=== PATIENT | male | born 1980 | race Caucasian/White ===

== ENCOUNTER 2023-12-10 08:56 | Emergency (ER) | payer BC, SELFPAY ==
--- NOTE | ~2023-12-10 | CT_ITS ---
Non-contrast Head CT History: Vertigo Technique: Axial non-contrast imaging of the brain was performed. Dose reduction technique was used on this scan by utilizing automated exposure control and iterative reconstruction technique. The dose -length product (DLP) was 605.33 mGy-cm. Findings: There is no evidence of intracranial hemorrhage, mass lesion, or acute infarct. Brain par enchyma appears normal. The ventricles and subarachnoid spaces are normal in size. The calvarium ap pears normal. The visualized paranasal sinuses and mastoid air cells are clear. Impression: No significant abnormality seen. Reviewed, dictated and finalized at location . Impression: No significant abnormality seen.
[2023-12-10 09:02] VITALS: BP 149/92; PULSE 73; RESP 19; TEMP 36.4; O2SAT 100
--- NOTE | 2023-12-10 09:02 | ECG_ITS ---
SEE SCANNED COPY FOR CONFIRMED REPORT MTDD
--- NOTE | 2023-12-10 09:12 | ED.DIZZY ---
HPI - Dizziness General Chief Complaint: Dizziness Stated Complaint: dizzy sice 0730 Time Seen by Provider: 12/10/23 09:00 History of Present Illness HPI Narrative: 43-year-old male presenting to the emergency department for acute onset of dizziness. Patient was at work when he had onset of dizziness with associated nausea. Patient states his symptoms are improved with closing his eyes and resting. Will patient is resting in bed he states he has no dizziness. Dizziness is worsened with ambulation. Patient denies any associated numbness or weakness. Patient denies any falls or injuries. Patient denies any coughs colds fevers or sinus pressure. Related Data Allergies Allergy/AdvReac Type Severity Reaction Status Date / Time FIG Allergy Unknown HIVES Uncoded 12/10/23 09:15 Review of Systems Review of Systems: All systems reviewed & are unremarkable except as noted in HPI and below PMFSH Family History Family History (Updated 09/20/20 @ 16:18 by Vidal Bentley MD Lon) Mother , CHF Congestive heart failure (CHF) Father Family history of lung cancer Other Asthma Family history of cardiovascular disease Family history of chronic obstructive pulmonary disease Family history of seizure disorder Social History Social History Second hand tobacco smoke exposure: No Alcohol intake: current Gender identity (if verbalized by the patient): Male Exam Narrative: APPEARANCE: Well appearing, no pain, no distress, well-nourished. HEAD: normocephalic, atraumatic. EYES: PERRLA/EOMI, conjunctivae clear. NOSE: Normal no drainage EARS:TMS clear with good light reflex. RESPIRATORY: Airway patent, respirations nonlabored. Clear to auscultation bilaterally, no rales, rhonchi, wheezing. CARDIOVASCULAR: Regular rate and rhythm without murmurs rubs or gallops. ABDOMINAL: Soft, nontender, nondistended, normal bowel sounds MUSCULOSKELETAL: Moves all extremities. Strength/ROM intact, No edema, No calf tenderness. NEURO: Alert. Cranial nerves II through XII intact. No ataxia, normal strength reflexes SKIN: Warm, dry. Normal Color Course Course Emergency Course: Patient felt improved with treatment and was discharged home with meclizine Vital Signs Vital signs: Vital Signs Temperature 97.5 F L 12/10/23 09:02 Pulse Rate 73 12/10/23 09:02 Respiratory Rate 19 12/10/23 09:02 Blood Pressure 149/92 H 12/10/23 09:02 Pulse Oximetry 100 12/10/23 09:02 Oxygen Delivery Room Air 12/10/23 09:02 Temperature 97.5 F L 12/10/23 09:02 Pulse Rate 56 L 12/10/23 10:53 Respiratory Rate 18 12/10/23 10:53 Blood Pressure 138/80 12/10/23 10:53 Pulse Oximetry 99 12/10/23 10:53 Oxygen Delivery Room Air 12/10/23 09:02 MDM - Dizziness MDM Narrative Medical decision making narrative: [age] year old male presenting to ED for evaluation dizziness. Patient was treated with meclizine and had a CT scan. On re-evaluation patient states he does feel significantly improved. Patient was able to ambulate in the emergency department without issues. Low concern for central vertigo. Suspect benign positional vertigo. Differential Diagnosis Differential diagnosis: Likely benign paroxysmal positional vertigo, orthostatic hypotension, vertebral basilar insufficiency and cerebrovascular accident Lab Data Attestation: I reviewed the patient's lab results. 12/10/23 09:13 12/10/23 09:13 Labs: Lab Results 12/10/23 Range/Units 09:13 WBC 7.6 (4.5-10.0) K/mm3 RBC 4.66 (4.6-6.20) M/mm3 Hgb 14.9 (14.0-18.0) g/dL Hct 44.5 (42.0-52.0) % MCV 95.5 (80-100) fl MCH 32.0 (26-34) pg MCHC 33.5 (32-36) g/dl RDW 12.5 (11.5-14.5) % Plt Count 202 (150-375) k/mm3 MPV 8.7 (7.4-10.4) fl Immature Gran % (Auto) 0.7 H (0-0.5) % Neut % (Auto) 78.5 H (45.5-73.1) % Lymph % (Auto) 13.4 L (18.3-44.2) % [place] % (Auto) 6.6 (2.6-8.5
[2023-12-10 09:19] LABS: Basophils Percent Auto 0.4 % (0.2-1.2); Eosinophils Percent Auto 0.4 % (0-4.4); Hematocrit 44.5 % (42.0-52.0); Hemoglobin 14.9 g/dL (14.0-18.0); Immature Granulocyte Absolute 0.05 K/mm3 (0.00-0.031); Immature Granulocyte Percent A 0.7 % (0-0.5); Lymphocytes Absolute Auto 1.02 K/mm3 (0.9-3.2); Lymphocytes Percent Auto 13.4 % (18.3-44.2); Mean Corpuscular HGB Conc 33.5 g/dl (32-36); Mean Corpuscular Volume 95.5 fl (80-100); Mean Platelet Volume 8.7 fl (7.4-10.4); Monocytes Absolute Auto 0.5 K/mm3 (0.1-0.6); Monocytes Percent Auto 6.6 % (2.6-8.5); Neutrophils Percent Auto 78.5 % (45.5-73.1); Platelet Count Result 202 k/mm3 (150-375); Red Blood Count 4.66 M/mm3 (4.6-6.20); Red Cell Distribution Width 12.5 % (11.5-14.5); White Blood Count 7.6 K/mm3 (4.5-10.0)
--- NOTE | 2023-12-10 09:20 | PC.NURSE ---
Pt to CT scan via stretcher at this time.
[2023-12-10 09:22] VITALS: PULSE 75
[2023-12-10] MEDS: MECLIZINE HCL 25 MG TABLET PO (09:22)
[2023-12-10 09:28] LABS: Alanine Aminotransferase 34 U/L (6-50); Albumin Level 4.4 g/dL (3.5-5.1); Alkaline Phosphatase 77 U/L (38-126); Anion Gap 4 mmol/L (4-12); Aspartate Amino Transferase 24 U/L (17-59); Bilirubin,Total 0.6 mg/dL (0.2-1.3); Blood Urea Nitrogen 16 mg/dL (9-20); Carbon Dioxide 29 mmol/L (22-30); Chloride 104 mmol/L (98-107); Estimated CRCL calculation 108 ml/min; Estimated Glomerular Filt Rate > 60; Glucose 97 mg/dL (65-110); Potassium 4.5 mmol/L (3.4-5.0); Sodium 137 mmol/L (137-145)
[2023-12-10 10:01] VITALS: BP 150/93; PULSE 65; RESP 15; O2SAT 98
[2023-12-10 10:53] VITALS: BP 138/80; PULSE 56; RESP 18; O2SAT 99
== END 2023-12-10 10:54 | disposition home or self-care (01) ==
PROVIDERS: Emergency Provider Emergency Medicine; Referring Provider Emergency Medicine
DX: H81.10 Benign paroxysmal vertigo, unspecified ear (principal)
CPT/HCPCS: 36415; 70450; 80053; 85025; 93005; 99284; A9270

== ENCOUNTER 2023-12-25 18:02 | Observation (INO) | payer BC, SELFPAY ==
[2023-12-25] VITALS (10 sets, daily range): BP systolic 138–189; BP diastolic 90–112; PULSE 62–81; RESP 12–24; TEMP 36.7–37.2; O2SAT 95–100; BMI 36.5
--- NOTE | ~2023-12-25 | CT_ITS ---
EXAMINATION: CT abdomen pelvis w con DATE: 12/25/2023 18:42 INDICATION: Gastrointestinal hemorrhage. TECHNIQUE: Computed tomography (CT) of the abdomen and pelvis was performed with 100 mL Omnipaque 350 intravenous contrast. Automated exposure control and iterative reconstruction technique were employe d. The dose-length product was 1091.49 mGy-cm. COMPARISON: None. FINDINGS: The visualized portions of the lung bases demonstrate calcified pulmonary nodules and calci fied right hilar and mediastinal lymph nodes, consistent with old granulomatous disease. No pleural e ffusion. The heart size is normal. No pericardial effusion. There is a small sliding hiatal hernia. T he liver, gallbladder, spleen, pancreas, adrenal glands, and kidneys are normal. There is a left ingu inal hernia containing fat. There are no dilated loops of bowel. The appendix is normal. There are no pathologically enlarged lymph nodes. There is no free intraperitoneal fluid. There is severe lumbar spondylosis and mild thoracic spondylosis. There is mild chronic anterior wedging of multiple vertebr al bodies. IMPRESSION: 1. No etiology for gastrointestinal hemorrhage. Reviewed, dictated and finalized at location E.
[2023-12-25 18:23] LABS: Basophils Percent Auto 0.4 % (0.2-1.2); Eosinophils Absolute Auto 0.1 K/mm3 (0-0.3); Eosinophils Percent Auto 0.7 % (0-4.4); Hematocrit 44.6 % (42.0-52.0); Hemoglobin 15.3 g/dL (14.0-18.0); Immature Granulocyte Absolute 0.04 K/mm3 (0.00-0.031); Immature Granulocyte Percent A 0.5 % (0-0.5); Lymphocytes Absolute Auto 1.75 K/mm3 (0.9-3.2); Mean Corpuscular HGB Conc 34.3 g/dl (32-36); Mean Corpuscular Volume 93.3 fl (80-100); Mean Platelet Volume 8.7 fl (7.4-10.4); Monocytes Absolute Auto 0.7 K/mm3 (0.1-0.6); Monocytes Percent Auto 9.2 % (2.6-8.5); Neutrophils Absolute Auto 4.8 K/mm3 (1.3-6.7); Neutrophils Percent Auto 65.2 % (45.5-73.1); Platelet Count Result 246 k/mm3 (150-375); Red Blood Count 4.78 M/mm3 (4.6-6.20); Red Cell Distribution Width 12.3 % (11.5-14.5); White Blood Count 7.3 K/mm3 (4.5-10.0)
[2023-12-25] MEDS: TRANEXAMIC ACID 1,000 MG/10 ML AMPUL 1000 MG IV PUSH (18:26)
[2023-12-25 18:34] LABS: Estimated CRCL calculation 108 ml/min; Estimated Glomerular Filt Rate > 60
[2023-12-25 18:34] LABS: Alanine Aminotransferase 37 U/L (6-50); Albumin Level 4.9 g/dL (3.5-5.1); Alkaline Phosphatase 68 U/L (38-126); Anion Gap 9 mmol/L (4-12); Aspartate Amino Transferase 32 U/L (17-59); Bilirubin,Total 0.6 mg/dL (0.2-1.3); Blood Urea Nitrogen 15 mg/dL (9-20); Calcium 9.6 mg/dL (8.4-10.2); Carbon Dioxide 23 mmol/L (22-30); Chloride 108 mmol/L (98-107); Estimated CRCL calculation 108 ml/min; Estimated Glomerular Filt Rate > 60; Glucose 94 mg/dL (65-110); Sodium 140 mmol/L (137-145)
[2023-12-25 18:37] LABS: INR 0.9; Prothrombin Time 12.4 Seconds (11.1-14.7)
[2023-12-25] MEDS: SODIUM CHLORIDE 0.9% IV 1,000 ML 999 ML IV CONT (18:42)
--- NOTE | 2023-12-25 19:18 | ED.GIBLEED ---
HPI - GI Bleed General Chief complaint: GI Bleed Stated complaint: Rectal bleeding Time Seen by Provider: 12/25/23 18:06 Source: patient and family Mode of arrival: wheelchair Limitations: no limitations History of Present Illness HPI Narrative: 43-year-old otherwise healthy here with a complaint of sudden onset of bright red blood per rectum which started about 1 hour patient denies any trauma. He denies being lightheaded or dizzy. No previous episodes of GI bleed. He is not on any anticoagulant MD complaint: gross hematochezia Onset (ago): hour(s) (1) Pain Consistency: constant Severity: severe Relieving factors: none Exacerbating factors: none Associated symptoms: denies other symptoms Related Data Allergies Allergy/AdvReac Type Severity Reaction Status Date / Time FIG Allergy Unknown HIVES Uncoded 12/10/23 09:15 Review of Systems Review of Systems: All systems reviewed & are unremarkable except as noted in HPI and below Constitutional: Constitutional: Reports no additional constitutional complaints Eyes: Eyes: Reports no additional eye complaints ENT: Reports system reviewed and no additional complaints, except as documented Cardiovascular: Cardiovascular: Reports no additional cardiovascular complaints Respiratory: Respiratory: Reports no additional respiratory complaints Gastrointestinal: Gastrointestinal: Reports as per HPI Musculoskeletal: Musculoskeletal: Reports no additional musculoskeletal complaints Integumentary/Breasts: Skin/Breast: Reports system reviewed and no additional complaints, except as docu Neurologic: Reports system reviewed and no additional complaints, except as documented PMFSH Family History Family History Mother , CHF Congestive heart failure (CHF) Father Family history of lung cancer Other Asthma Family history of cardiovascular disease Family history of chronic obstructive pulmonary disease Family history of seizure disorder Social History Social History Second hand tobacco smoke exposure: No Alcohol intake: current Gender identity (if verbalized by the patient): Male Exam Narrative: GENERAL: Well-appearing, well-nourished, and in no acute distress. HEAD: Normocephalic, atraumatic. EYES: PERRLA and EOMI. ENT: Nares clear, no rhinorrhea or epistaxis. Mucous membranes moist. NECK: Supple. CHEST: Clear to auscultation. No respiratory distress. HEART: Regular rate and rhythm. No murmur heard. Normal peripheral pulses. ABDOMEN: Soft, nontender, nondistended, normal active bowel sounds. Active bleeding , bright red in color EXTREMITIES: Normal range of motion. No edema. SKIN: Warm, dry, no rash. NEURO: No focal deficits. Alert and oriented x3. PSYCH: Normal mood and affect. Course Course Emergency Course: Patient comfortably resting now, mild bleeding present at this time. Informed him and his about the lab work, CT findings. I discussed with Dr. Gorman and Dr. Reddy will consult , Dr. Veras was notified will accept the pt. Vital Signs Vital signs: Vital Signs Pulse Rate 81 12/25/23 18:11 Respiratory Rate 24 H 12/25/23 18:11 Blood Pressure 189/112 H 12/25/23 18:11 Pulse Oximetry 98 12/25/23 18:11 Temperature 36.9 C 12/25/23 19:38 Pulse Rate 72 12/25/23 19:35 Respiratory Rate 18 12/25/23 19:35 Blood Pressure 140/92 H 12/25/23 19:35 Pulse Oximetry 100 12/25/23 19:35 MDM - GI Bleed Differential Diagnosis Differential diagnosis: Likely hemorrhoids, Lower gastrointestinal hemorrhage and hematochezia Medical Records Attestation: I reviewed the patient's medical records. Lab Data Attestation: I reviewed the patient's lab results. 12/25/23 18:17 12/25/23 18:32 Labs: Lab Results 12/25/23 12/25/23 Range/Units 18:17 18:32 WBC 7.3
--- NOTE | 2023-12-25 20:00 | ADMGEN ---
This patient, Morris Lizarraga, was admitted to Intensive Care Unit-2. Patient/family oriented to hospital policies and general routines including ID bracelet, bed and alarms, visiting hours, pain management, procedures, bathroom and other care routines, personal items, smoking policy, room service/diet, and visiting hours. Information on how to activate the Rapid Response Team has been discussed. Patient/Family are encouraged to report perceived risks to care and to ask questions if they do not understand what they are told or what they should do.
--- NOTE | 2023-12-25 20:21 | PM.IMHP ---
H&P: HPI History of Present Illness Date/Time: 12/25/23 20:21 Chief Complaint: rectal bleed Narrative: This is a 43-year-old male with past medical history significant for hypertension, patient presents to the emergency room with bright red blood per rectum on several episodes through the day denies any changes in stool character, melena, hematemesis, coffee-ground emesis, abdominal pain, no weight loss. patient has been in his usual state of health up until this moment. Preliminary workup was nonrevealing. EXAMINATION: CT abdomen pelvis w con DATE: 12/25/2023 18:42 INDICATION: Gastrointestinal hemorrhage. TECHNIQUE: Computed tomography (CT) of the abdomen and pelvis was performed with 100 mL Omnipaque 350 intravenous contrast. Automated exposure control and iterative reconstruction technique were employed. The dose-length product was 1091.49 mGy-cm. COMPARISON: None. FINDINGS: The visualized portions of the lung bases demonstrate calcified pulmonary nodules and calcified right hilar and mediastinal lymph nodes, consistent with old granulomatous disease. No pleural effusion. The heart size is normal. No pericardial effusion. There is a small sliding hiatal hernia. The liver, gallbladder, spleen, pancreas, adrenal glands, and kidneys are normal. There is a left inguinal hernia containing fat. There are no dilated loops of bowel. The appendix is normal. There are no pathologically enlarged lymph nodes. There is no free intraperitoneal fluid. There is severe lumbar spondylosis and mild thoracic spondylosis. There is mild chronic anterior wedging of multiple vertebral bodies. IMPRESSION: 1. No etiology for gastrointestinal hemorrhage. Review of Systems Review of Systems: rectal bleed Constitutional: Constitutional: Denies chills, Denies fever(s), Denies malaise and Denies poor appetite Eyes: Eyes: Denies change in vision ENT: Denies dysphagia and Denies odynophagia Cardiovascular: Cardiovascular: Denies chest pain, Denies radiating jaw, neck or arm pain and Denies palpitations Respiratory: Respiratory: Denies cough, Denies excessive phlegm production and Denies dyspnea Gastrointestinal: Gastrointestinal: Denies abdominal pain, Denies melena, Reports hematochezia, Denies coffee ground emesis, Denies dyspepsia, Denies heartburn, Denies diarrhea, Denies nausea and Denies vomiting Genitourinary: Genitourinary: Denies dysuria Musculoskeletal: Musculoskeletal: Denies arthralgias Integumentary/Breasts: Skin/Breast: Denies rash Neurologic: Denies focal weakness and Denies Sensory deficit (Neuro) Psychiatric: Psychiatric: Reports no additional psychiatric complaints and Reports as per HPI Endocrine: Endocrine: Denies cold intolerance, Denies fatigue, Denies flushing, Denies heat intolerance, Denies polyphagia, Denies polydipsia, Denies polyuria and Denies palpitations Hematologic/Lymphatic: Hematologic/Lymphatic: Reports no additional hematologic/lymphatic complaints and Reports as per HPI Allergic/Immunologic: Allergic/Immunologic: Reports no additional allergic/immunologic complaints and Reports as per HPI PMFSH Family History Family History Mother , CHF Congestive heart failure (CHF) Father Family history of lung cancer Other Asthma Family history of cardiovascular disease Family history of chronic obstructive pulmonary disease Family history of seizure disorder Social History Social History Smoking status: Former smoker Second hand tobacco smoke exposure: No Alcohol intake: never Substance use: never Do You Feel Safe in your Home?: Yes Lack of Transportation: No Lack of Food: Never True Current Housing: I Do Not Have Housing Concerned About Future Housing: No Difficulty Paying Gas/Electric Bills: No Difficulty Paying for Meds: No Currently Unemployed: N
[2023-12-25] MEDS: SODIUM CHLORIDE 0.9% IV 1,000 ML 125 ML IV CONT (20:44)
[2023-12-25 20:56] LABS: Hematocrit 38.9 % (42.0-52.0); Hemoglobin 13.4 g/dL (14.0-18.0)
[2023-12-25] MEDS: PEG (High)/E-LYTE SOLN 4,000 ML BTL 4000 ML PO (21:00)
[2023-12-25 21:41] LABS: MRSA (PCR) NOT DETECTED (NOT DETECTE)
--- NOTE | 2023-12-25 21:45 | PC.NURSE ---
Pt arrived to ICU via stretcher. Pt walked into bathroom. When pt walked back into room, blood was dripping on the floor. Blood was on the toilet seat and floor of the bathroom. H&H drawn shortly after. Pt started on bowel prep. BSC at bedside. Pt has used the BSC once, large clot noted in BSC.
--- NOTE | 2023-12-25 22:30 | PC.NURSE ---
Discussed pt's condition with Dr. Veras. Pt to receive 2 units PRBCs with Lasix 10 mg IVP in between units.
[2023-12-26] VITALS (15 sets, daily range): BP systolic 123–149; BP diastolic 77–106; PULSE 61–92; RESP 13–18; TEMP 36.2–36.7; O2SAT 95–100
[2023-12-26] MEDS: FUROSEMIDE INJ 40 MG/4 ML VIAL 10 MG IV PUSH (01:01)
[2023-12-26 01:34] LABS: Hematocrit 44.5 % (42.0-52.0)
--- NOTE | 2023-12-26 01:50 | PC.NURSE ---
Pt received 1 unit PRBCs. Current hgb 15. Discussed with Dr. Veras. Pt has had 4 bloody stools since coming to ICU, but has not had any in approximately 2 hours. Second unit of PRBCs on hold at this time. Next hgb to be drawn at 0745. Will notify Dr. Veras of status changes.
[2023-12-26] MEDS: SODIUM CHLORIDE 0.9% IV 1,000 ML 125 ML IV CONT (04:45)
[2023-12-26] MEDS: MAGNESIUM CITRATE 300 ML BTL PO (06:17)
--- NOTE | 2023-12-26 07:45 | WPDCNINT ---
Assessment and Plan Assessment and plan (1) Acute lower gastrointestinal bleeding: Code(s): K92.2 - Gastrointestinal hemorrhage, unspecified <Lora GaleanoClaus Tyler, Student - Last Filed: 12/26/23 08:58> Status: Acute <Lora Mehtacon, - Last Filed: 12/26/23 08:58> Assessment and Plan: Patient with painless, abrupt red LGI bleeding, with anemia. S/p 1 unit of blood. He remains hemodynamically stable. No radiographic evidence of source. GI is consulted and will proceed with colonoscopy Differential diagnoses: Diverticular bleeding, colon polyps, colonic AVMs, internal hemorrhoids, colon cancer Plan IV fluids NPO Pt will complete bowel prep and proceed with scheduled colonoscopy Trend H&H Appreciate GI recommendations <Lorajanusz Scott, Student - Last Filed: 12/26/23 08:58> (2) Acute blood loss anemia: Code(s): D62 - Acute posthemorrhagic anemia <Lora Scott, Student - Last Filed: 12/26/23 08:58> Status: Acute <Lora Cano Tyler, Student - Last Filed: 12/26/23 08:58> Assessment and Plan: Hgb with rapid decline, now s/p 1 unit blood, hgb stable. Likely from episodes of LGIB. Patient without further episodes of bleed since admission and remains asymptomatic Plan Seriel H&H Transfuse as needed <Lora Cano Tyler, Student - Last Filed: 12/26/23 08:58> (3) Hyperglycemia, unspecified: Code(s): R73.9 - Hyperglycemia, unspecified <Lora Scott, Student - Last Filed: 12/26/23 08:58> Status: Acute <Lora Scott, Student - Last Filed: 12/26/23 08:58> Assessment and Plan: Mild glucose elevation Continue to monitor <Lora Scott, Student - Last Filed: 12/26/23 08:58> (4) Obstructive sleep apnea: Code(s): G47.33 - Obstructive sleep apnea (adult) (pediatric) <Lora Scott, Student - Last Filed: 12/26/23 08:58> Status: Acute <Lora Scott, Student - Last Filed: 12/26/23 08:58> Assessment and Plan: CPAP at night <Lora Scott Student - Last Filed: 12/26/23 08:58> (5) GERD (gastroesophageal reflux disease): Code(s): K21.9 - Gastro-esophageal reflux disease without esophagitis <Lora Scott Student - Last Filed: 12/26/23 08:58> Status: Acute <Lora Scott Student - Last Filed: 12/26/23 08:58> Assessment and Plan: Per patient and EMR, patient consulted with a GI specialist in 2019 after he was found to have heme occult positive stools. Endoscopies from 02/2019: Colonoscopy revealed 10 non bleeding polyps and few nonbleeding internal hemorrhoids. Followup pathology results were negative for cancerous lesions. EGD showed Chapman esophageus mucosa. <Montez Reddy MD - Last Filed: 12/26/23 14:05> (6) PTSD (post-traumatic stress disorder): Code(s): F43.10 - Post-traumatic stress disorder, unspecified <Lora Scott Student - Last Filed: 12/26/23 08:58> Status: Acute <Lora Scott Student - Last Filed: 12/26/23 08:58> Assessment and Plan: Chronic <Montez Reddy MD - Last Filed: 12/26/23 14:05> Assessment and Plan: DVT prophylaxis: SCDs Stress ulcer prophylaxis: Not indicated Nutrition: NPO for procedure Code Status: Full Critical Care Time Spent: 51 minutes Due to a high probability of clinically significant, life threatening deterioration, the patient required my highest level of preparedness to intervene emergently and I personally spent this critical care time directly and personally managing the patient. This critical care time included obtaining a history; examining the patient; pulse oximetry; ordering and review of studies; arranging urgent treatment with development of a management plan; evaluation of patient's response to treatment; frequent reassessment; and discussions with other providers. It was exclusive of separately billable procedures and treating other patients and teaching
[2023-12-26 08:10] LABS: Hematocrit 42.4 % (42.0-52.0); Hemoglobin 14.5 g/dL (14.0-18.0)
[2023-12-26 08:24] LABS: Anion Gap 9 mmol/L (4-12); Blood Urea Nitrogen 9 mg/dL (9-20); Calcium 9.2 mg/dL (8.4-10.2); Carbon Dioxide 24 mmol/L (22-30); Chloride 107 mmol/L (98-107); Estimated CRCL calculation 122 ml/min; Estimated Glomerular Filt Rate > 60; Glucose 112 mg/dL (65-110); Potassium 3.8 mmol/L (3.4-5.0); Sodium 140 mmol/L (137-145)
[2023-12-26] MEDS: LACTATED RINGERS 1,000 ML 150 ML IV CONT (11:46)
--- NOTE | 2023-12-26 11:52 | WPDANESEPPF ---
Anes - Initial Pre Proc Eval Procedure: Operation Date: 12/26/23 13:30 Proposed Procedures p Colonoscopy - Krzysztof Morales MD Date/Time: 12/26/23 11:52 Surgeon: June Veras MD Pre Op Diagnosis: Lower GI bleed Patient Data Age: 43 Gender: M Height: 1.73 m Weight: 107.5 kg Last Vital Signs Temp 98.0 F 12/26/23 11:44 Pulse 61 12/26/23 11:44 Resp 18 12/26/23 11:44 BP 132/78 12/26/23 11:44 Pulse Ox 97 12/26/23 11:44 O2 Del Method Room Air 12/26/23 11:44 Allergies Allergy/AdvReac Type Severity Reaction Status Date / Time FIG Allergy Unknown HIVES Uncoded 12/10/23 09:15 Home Medications Medication Instructions Recorded Confirmed Type meclizine 25 mg tablet 25 mg PO BID PRN dizziness #20 tabs 12/10/23 12/25/23 Rx omeprazole magnesium 20 mg 20 mg PO DAILY 12/25/23 12/25/23 History tablet,delayed release (Prilosec OTC) Laboratory Tests 12/25/23 12/25/23 12/25/23 18:17 18:32 20:24 WBC 7.3 K/mm3 (4.5-10.0) RBC 4.78 M/mm3 (4.6-6.20) Hgb 15.3 g/dL (14.0-18.0) Hct 44.6 % (42.0-52.0) MCV 93.3 fl (80-100) MCH 32.0 pg (26-34) MCHC 34.3 g/dl (32-36) RDW 12.3 % (11.5-14.5) Plt Count 246 k/mm3 (150-375) MPV 8.7 fl (7.4-10.4) Immature Gran % (Auto) 0.5 % (0-0.5) Neut % (Auto) 65.2 % (45.5-73.1) Lymph % (Auto) 24.0 % (18.3-44.2) [place] % (Auto) 9.2 H % (2.6-8.5) Eos % (Auto) 0.7 % (0-4.4) Baso % (Auto) 0.4 % (0.2-1.2) Lymph # (Auto) 1.75 K/mm3 (0.9-3.2) [place] # (Auto) 0.7 H K/mm3 (0.1-0.6) Eos # (Auto) 0.1 K/mm3 (0-0.3) Baso # (Auto) 0.0 K/mm3 (0.0-0.1) Abs Immat Gran (auto) 0.04 H K/mm3 (0.00-0.031) Absolute Neuts (auto) 4.8 K/mm3 (1.3-6.7) Absolute Nucleated RBC 0.000 K/mm3 (0.0-0.012) Nucleated RBC % 0.0 % (0.0-0.2) PT 12.4 Seconds (11.1-14.7) INR 0.9 Sodium 140 mmol/L (137-145) Potassium 4.0 mmol/L (3.4-5.0) Chloride 108 H mmol/L (98-107) Carbon Dioxide 23 mmol/L (22-30) Anion Gap 9 mmol/L (4-12) BUN 15 mg/dL (9-20) Creatinine 0.90 mg/dL 0.90 mg/dL (0.7-1.3) (0.8-1.5) Estim Creat Clear Calc 108 ml/min 108 ml/min Estimated GFR > 60 > 60 (59 - ) (59 - ) Glucose 94 mg/dL (65-110) Calcium 9.6 mg/dL (8.4-10.2) Total Bilirubin 0.6 mg/dL (0.2-1.3) AST 32 U/L (17-59) ALT 37 U/L (6-50) Alkaline Phosphatase 68 U/L (38-126) Total Protein 8.0 g/dL (6.3-8.2) Albumin 4.9 g/dL (3.5-5.1) Nasal MRSA (PCR) Not detected (NOT DETECTE) Blood Type O Negative Antibody Screen Negative Crossmatch See Detail 12/25/23 12/26/23 12/26/23 20:50 01:29 08:03 WBC RBC Hgb 13.4 L g/dL 15.0 g/dL 14.5 g/dL (14.0-18.0) (14.0-18.0) (14.0-18.0) Hct 38.9 L % 44.5 % 42.4 % (42.0-52.0) (42.0-52.0) (42.0-52.0) MCV MCH MCHC RDW Plt Count MPV Immature Gran % (Auto) Neut % (Auto) Lymph % (Auto) [place] % (Auto) Eos % (Auto) Baso % (Auto) Lymph # (Auto) [place] # (Auto) Eos # (Auto) Baso # (Auto) Abs Immat Gran (auto) Absolute Neuts (auto) Absolute Nucleated RBC Nucleated RBC % PT INR Sodium 140 mmol/L (137-145) Potassium 3.8 mmol/L (3.4-5.0) Chloride 107 mmol/L (98-107) Carbon Dioxide 24 mmol/L
--- NOTE | 2023-12-26 13:51 | WPDGICN ---
Assessment and Plan Assessment and plan (1) Acute lower gastrointestinal bleeding: Code(s): K92.2 - Gastrointestinal hemorrhage, unspecified Status: Acute Assessment and Plan: resolved will proceed with colonoscopy today, already got bowel prep and denies any more bleeding ? perianal (2) Acute blood loss anemia: Code(s): D62 - Acute posthemorrhagic anemia Status: Acute Assessment and Plan: hgb now 15 (3) GERD (gastroesophageal reflux disease): Code(s): K21.9 - Gastro-esophageal reflux disease without esophagitis Status: Acute Assessment and Plan: on issues ppi at home (4) Chronic obstructive pulmonary disease, unspecified: Code(s): J44.9 - Chronic obstructive pulmonary disease, unspecified Status: Acute GI Consult Note Consult date/time: 12/26/23 13:51 Reason for consult: rectal bleeding HPI: Morrsi Lizarraga is a 43 year old male with history of hypertension, GERD on ppi, colon polyps (last colonoscopy 2018), hemorrhoids, and former tobacco use who presents with bright red stool. After he returned home from the grocery store had new onset of two episodes of painless, bright red stool with incontinence, he was not using restroom. He denies abdominal pain, nausea. ED with elevated blood pressures but otherwise hemodynamically stable. Initial workup showed hgb/hct of 15/45 then down to 13, CT with contrast did not reveal GI source of bleeding, hgb back to 15 with no further episodes of hematochezia overnight (he was given 1 unit prbc). Review of Systems Review of Systems: rectal bleed Constitutional: Constitutional: Denies chills, Denies fever(s), Denies malaise and Denies poor appetite Eyes: Eyes: Denies change in vision ENT: Denies dysphagia and Denies odynophagia Cardiovascular: Cardiovascular: Denies chest pain, Denies radiating jaw, neck or arm pain and Denies palpitations Respiratory: Respiratory: Denies cough, Denies excessive phlegm production and Denies dyspnea Gastrointestinal: Gastrointestinal: Denies abdominal pain, Denies melena, Reports hematochezia, Denies heartburn, Denies diarrhea, Denies nausea and Denies vomiting Genitourinary: Genitourinary: Denies dysuria Musculoskeletal: Musculoskeletal: Denies arthralgias Integumentary/Breasts: Skin/Breast: Denies rash Neurologic: Denies focal weakness and Denies Sensory deficit (Neuro) Psychiatric: Psychiatric: Reports no additional psychiatric complaints and Reports as per HPI Endocrine: Endocrine: Denies cold intolerance, Denies fatigue, Denies polydipsia and Denies polyuria Hematologic/Lymphatic: Hematologic/Lymphatic: Reports no additional hematologic/lymphatic complaints and Reports as per HPI Allergic/Immunologic: Allergic/Immunologic: Reports no additional allergic/immunologic complaints and Reports as per HPI [facility] Family History Family History Mother , CHF Congestive heart failure (CHF) Father Family history of lung cancer Other Asthma Family history of cardiovascular disease Family history of chronic obstructive pulmonary disease Family history of seizure disorder Social History Social History Smoking status: Former smoker Second hand tobacco smoke exposure: No Alcohol intake: never Substance use: never Do You Feel Safe in your Home?: Yes Lack of Transportation: No Lack of Food: Never True Current Housing: I Do Not Have Housing Concerned About Future Housing: No Difficulty Paying Gas/Electric Bills: No Difficulty Paying for Meds: No Currently Unemployed: No Education: Decline to Answer Difficulty w/ Childcare or Family Care: Decline to Answer Gender identity (if verbalized by the patient): Male Spiritual care concerns: No Meds Home Medications and Allergies Home Medications Medication
--- NOTE | 2023-12-26 13:56 | PM.DS ---
DS: Admitting Diagnosis Discharge Date December 26, 2023 Admitting Diagnosis Bright red blood per rectum DS: Discharge Diagnosis Discharge Diagnosis (1) Acute blood loss anemia: Code(s): D62 - Acute posthemorrhagic anemia Status: Acute (2) Acute lower gastrointestinal bleeding: Code(s): K92.2 - Gastrointestinal hemorrhage, unspecified Status: Acute (3) Internal hemorrhoid: Code(s): K64.8 - Other hemorrhoids Status: Acute DS: Summary Hospital Course Hospital Course: This is a 43-year-old male with a past medical history hypertension GERD colon polyps internal hemorrhoids former tobacco user who presents with bright red blood per rectum. He was in his usual state of health when he was returning home from [facility] and he suddenly had 2 episodes of painless bright red stool incontinence. This went on as he returned home and reports there were many episodes. Patient denied any associated symptoms whatsoever. He denies excessive alcohol use he denies NSAID use he does not even take Tylenol. In [facility] he presented with elevated blood pressures but otherwise hemodynamically stable. [place] 15 CT with contrast did not reveal a source of GI bleeding. The patient was provided 1 unit of blood after his hemoglobin dropped to 13.4 and a did return to 15. Dr. Gorman performed a colonoscopy on 12/26/2023 which demonstrated a single 3 mm polyp observed in the cecum with cold snare polypectomy performed. Few medium-sized internal hemorrhoids were seen in the rectum and they were not actively bleeding. Postprocedure the patient is feeling well tolerating diet and requesting to be discharged home. His last hemoglobin is 14.5 and he has had no more rectal bleeding. Next colonoscopy suggested in 5 years by GI. Patient is discharged on Anusol suppository for 2 week course and should follow with GI and his primary care provider. He stable for discharge home. He was full code during the admission. Time Spent with Patient Time attestation: Total time spent providing and/or coordinating discharge services: Exam Const: General: cooperative and no acute distress Resp: Effort & Inspection: normal respiratory effort Auscultation: clear to auscultation bilaterally Cardio: Rate: regular rate Rhythm: regular rhythm Heart sounds: S1 normal heart sound present and S2 normal heart sound present GI: GI Palp: No abdominal tenderness Auscultation: normal bowel sounds DS: Data Data Completed and Pending Pending studies at discharge: Pending at discharge 12/26/23 12:56 Surgical [PTH] Routine Labs on day of discharge: Labs from last 24 hours 12/26/23 12/26/23 12/25/23 08:03 01:29 20:50 WBC RBC Hgb 14.5 15.0 13.4 L Hct 42.4 44.5 38.9 L MCV MCH MCHC RDW Plt Count MPV Immature Gran % (Auto) Neut % (Auto) Lymph % (Auto) Bailey % (Auto) Eos % (Auto) Baso % (Auto) Lymph # (Auto) Bailey # (Auto) Eos # (Auto) Baso # (Auto) Abs Immat Gran (auto) Absolute Neuts (auto) Absolute Nucleated RBC Nucleated RBC % PT INR Sodium 140 Potassium 3.8 Chloride 107 Carbon Dioxide 24 Anion Gap 9 BUN 9 D Creatinine 0.80 Estim Creat Clear Calc 122 Estimated GFR > 60 Glucose 112 H Calcium 9.2 Total Bilirubin AST ALT Alkaline Phosphatase Total Protein Albumin Nasal MRSA (PCR) Blood Type Antibody Screen Crossmatch 12/25/23 12/25/23 12/25/23 20:24 18:32 18:17 WBC 7.3 RBC 4.78 Hgb 15.3 Hct 44.6 MCV 93.3 MCH 32.0 MCHC 34.3 RDW 12.3 Plt Count 246 MPV 8.7 Immature Gran % (Auto) 0.5 Neut % (Auto) 65.2 Lymph % (Auto) 24.0 Bailey % (Auto) 9.2 H Eos % (Auto) 0.7 Baso % (Auto) 0.4 Lymph # (Auto) 1.75 Bailey # (Auto) 0.7 H Eos # (Auto) 0.1 Baso # (Auto) 0.0 Abs Immat Gran (auto) 0.04 H A
== END 2023-12-26 14:35 | disposition home or self-care (01) ==
LOC: ANHED 19:43 → ANHICU 22:21
PROVIDERS: Internal Medicine Gastroenterology; Admitting Provider Internal Medicine; Emergency Provider Family Medicine; Visit Provider General Practice
PROC: 0DJD8ZZ Inspection of Lower Intestinal Tract, Via Natural or Artificial Opening Endoscopic (ICD-10-PCS; CPT 45378; principal; 2023-12-26 13:30)
DX: K92.2 Gastrointestinal hemorrhage, unspecified (principal); D62 Acute posthemorrhagic anemia; D12.0 Benign neoplasm of cecum; K64.8 Other hemorrhoids; R73.9 Hyperglycemia, unspecified; J44.9 Chronic obstructive pulmonary disease, unspecified; G47.33 Obstructive sleep apnea (adult) (pediatric); K21.9 Gastro-esophageal reflux disease without esophagitis; F43.10 Post-traumatic stress disorder, unspecified
CPT/HCPCS: 45385; 36415; 36430; 74177; 80048; 80053; 85014; 85018; 85025; 85610; 86850; 86900; 86901; 86923; 87641; 88305; 96361; 96374; 96375; 99285; A9270; G0378; J1940; J2704; J7030; J7050; J7120; P9016; Q9967

== ENCOUNTER 2024-02-06 00:25 | Day surgery (SDC) | payer BC, SELFPAY ==
[2024-02-04 11:34] VITALS: BMI 37.2
[2024-02-06 09:36] VITALS: BP 136/99; PULSE 62; RESP 20; TEMP 36.1; O2SAT 100
[2024-02-06] MEDS: LACTATED RINGERS 1,000 ML 150 ML IV CONT (09:45)
--- NOTE | 2024-02-06 10:24 | WPDHPUPDATE1 ---
History and Physical Update Update Date/Time: 02/06/24 10:24 History and Physical has been reviewed, including an updated exam of the patient. There are NO changes in the patient's condition. Risks, benefits, and alternatives have been discussed and questions answered. Patient agrees to proceed with procedure.
[2024-02-06 10:36] VITALS: BP 103/69; PULSE 66; RESP 14; O2SAT 100
[2024-02-06 10:46] VITALS: BP 119/62; PULSE 75; RESP 18; O2SAT 100
[2024-02-06 10:56] VITALS: BP 115/75; PULSE 71; RESP 18; O2SAT 99
== END 2024-02-06 11:04 | disposition home or self-care (01) ==
PROVIDERS: PCP Nurse Practitioner Family; Referring Provider Nurse Practitioner Family; Visit Provider Internal Medicine Gastroenterology
PROC: 0DJ08ZZ Inspection of Upper Intestinal Tract, Via Natural or Artificial Opening Endoscopic (ICD-10-PCS; CPT 43235; principal; 2024-02-06 11:00)
DX: K20.90 Esophagitis, unspecified without bleeding (principal); K92.2 Gastrointestinal hemorrhage, unspecified; K64.8 Other hemorrhoids; K22.70 Barrett's esophagus without dysplasia; K92.1 Melena; K44.9 Diaphragmatic hernia without obstruction or gangrene; K21.9 Gastro-esophageal reflux disease without esophagitis; I10 Essential (primary) hypertension; Z87.891 Personal history of nicotine dependence
CPT/HCPCS: 43239; 88305; J2704; J7120

== ENCOUNTER 2024-04-29 10:53 | Outpatient (CLI) | payer BC, SELFPAY ==
--- NOTE | 2024-04-29 11:10 | EST_ITS ---
Patient Info Name: Morris Lizarraga Age: 43 years : 1980 Gender: Male Ht: 68 in Wt: 248 lbs BSA: 2.37 m2 HR: 66 bpm BP: 122 / 74 mmHg Heart Rhythm: Sinus Rhythm Exam Date: 04/29/2024 11:20 AM Exam Location: Echo Lab Patient Status: Outpatient Admit Date: 04/29/2024 Staff Ordering Physician: Opal Buitrago NP Attending Provider: Opal Buitrago NP Exercise Technologist: Courtney Rodriguez CT Exercise Physician: Shamar Cadet DO Exam Type: CA stress test treadmill Study Info Indications I10 - Essential (primary) hypertension A treadmill exercise stress test was performed. Summary 1. 1. Negative Duncan exercise stress test for ischemic ST changes by ECG criteria. 2. 2. Reduced functional capacity, achieving 7 METs of workload. 3. 3. Appropriate HR response to exercise. 4. 4. Appropriate HR recovery at 1 minute post exercise. 5. 5. No imaging with stress testing. 6. 6. Patient informed of the above results. Protocol: Duncan Stress ECG Details Stage: REST Duration (min): 1 min : 9 sec Speed (mph): 0.0 Grade (%): 0 HR (bpm): 70 SBP (mmHg): 122 DBP (mmHg): 74 METS: --- Stage: REST Duration (min): 5 min : 0 sec Speed (mph): 0.0 Grade (%): 0 HR (bpm): 87 SBP (mmHg): 122 DBP (mmHg): 74 METS: --- Stage: STAGE 1 Duration (min): 1 min : 0 sec Speed (mph): 1.7 Grade (%): 10 HR (bpm): 122 SBP (mmHg): 122 DBP (mmHg): 74 METS: --- Stage: STAGE 1 Duration (min): 2 min : 0 sec Speed (mph): 1.7 Grade (%): 10 HR (bpm): 135 SBP (mmHg): 122 DBP (mmHg): 74 METS: --- Stage: STAGE 1 Duration (min): 3 min : 0 sec Speed (mph): 1.7 Grade (%): 10 HR (bpm): 138 SBP (mmHg): 162 DBP (mmHg): 70 METS: --- Stage: STAGE 2 Duration (min): 1 min : 0 sec Speed (mph): 2.5 Grade (%): 12 HR (bpm): 150 SBP (mmHg): 162 DBP (mmHg): 70 METS: --- Stage: STAGE 2 Duration (min): 2 min : 0 sec Speed (mph): 2.5 Grade (%): 12 HR (bpm): 154 SBP (mmHg): 165 DBP (mmHg): 86 METS: --- Stage: STAGE 2 Duration (min): 3 min : 0 sec Speed (mph): 2.5 Grade (%): 12 HR (bpm): 156 SBP (mmHg): 165 DBP (mmHg): 86 METS: --- Stage: RECOVERY Duration (min): 0 min : 59 sec Speed (mph): 0.0 Grade (%): 0 HR (bpm): 130 SBP (mmHg): 139 DBP (mmHg): 76 METS: --- Stage: RECOVERY Duration (min): 1 min : 12 sec Speed (mph): 0.0 Grade (%): 0 HR (bpm): 127 SBP (mmHg): 139 DBP (mmHg): 76 METS: --- Rest HR: 87 bpm Peak HR: 156 bpm Rest Sys BP: 122 mmHg Peak Sys BP: 165 mmHg Max Pred HR: 176 bpm % Max Pred HR: 89 % Target HR: 150 bpm Max RPP: 25,740 bpm*mmHg Carter Score: 1 Termination Reason: Reached target heart rate or workload Cardiac Symptoms: Shortness of breath Max ST Seg Deviation: -1.00 mm Total Time: 6 min : 0 sec Rest Costa BP: 74 mmHg Peak Costa BP: 86 mmHg Angina Score: None Total METS: 7.1 Resting ECG Sinus rhythm. Stress ECG No ST changes. Arrhythmias None. Report Signatures E
== END 2024-04-29 10:54 | disposition home or self-care (01) ==
LOC: ANHCARD 10:55
PROVIDERS: PCP Nurse Practitioner Family; Visit Provider Nurse Practitioner Family
DX: I10 Essential (primary) hypertension (principal); R68.89 Other general symptoms and signs; R73.9 Hyperglycemia, unspecified
CPT/HCPCS: 93017

== ENCOUNTER 2024-05-25 11:59 | Outpatient (CLI) | payer BC, SELFPAY ==
--- NOTE | 2024-06-22 16:55 | P.SLEEP_ITS ---
Sleep Study Date of Study: 05/25/24 Ordering Provider: Sanjay Sy APRN Interpreting Physician: Edilma Gonzalez MD Sleep Study Type: CPAP Titration Height: 1.73 m Weight: 103.419 kg Body Mass Index: 34.7 Neck Circumference (inches): 17 [place]: 12 Reason for Sleep Study Hypersomnolence Sleep History Morris Lizarraga is a 43-year-old man with obstructive sleep apnea, nightmares and restless legs syndrome; he was diagnosed in 2017 has been on the same APAP device 4 cm to 20 cm which is no longer effective. His max pressure is 17+ cm. He swings his arms at night, kicks and has disrupted sleep. He uses prazosin for nightmares. He has gained weight in the last few years. his sleep questionnaire indicates that he moves his legs constantly at night, he tosses and turns, hits and slings is arms. He wakes up during the night and he has excessive daytime sleepiness. He has only had a home sleep test in the past. He occasionally awakens from sleep feeling short of breath. He occasionally awakens at night with heartburn, belching or coughing. He always snores loudly enough that others complain about it. He occasionally has difficulty sleeping when he has a cold. He rarely wakes up gasping for breath at night. He occasionally has breathing problems at night witnessed by others but this improved after using CPAP. He occasionally sweats excessively at night. He does not notice his heart pounding or beating irregularly at night. He frequently falls asleep during the day if he sits down for any length of time. He occasionally falls asleep involuntarily if he is not actively moving. He is a maintenance service technician. He does not fall asleep while driving. He does not have loss of muscle tone with strong emotion. He does not have daytime difficulties due to excessive sleepiness. He does not feel paralyzed on waking or falling asleep. He does not have vivid dreamlike scenes upon awakening or falling asleep. He does not feel afraid to go to sleep. He occasionally has nightmares. He does not remember his dreams. He constantly has racing thoughts. He does not feel sad or depressed. He rarely has anxiety. He occasionally has muscular tension. He constantly notices his legs jerking. He always kicks at night. He does not have crawling or aching feelings in his legs or any kind of leg pain at night. He does not have morning jaw pain. He does not grind his teeth at night. He is not bothered by pain during the day nor is he awakened by pain during the night. He frequently wakes up feeling stiff in the morning. He occasionally wakes up with sore achy muscles. He does not wake up with pain in the neck and spine. He has fatigue. He takes medications for his restless legs. He takes antacids regularly for gastric reflux. Normal bedtime is 9:00 p.m. falling asleep quickly, waking several times at night to go to the bathroom or will awaken for other nonspecific reasons. He may be able to return to sleep within 20 minutes. His normal wake time is 5:30 a.m.. On weekends, bedtime is 10:00 p.m. and his wake time is 7:00 a.m.. He takes naps but only incidental naps if he sits down for any length of time. He does not feel refreshed after a 10-15 minute nap. He is drowsy after waking for 2 hours. He feels better in the afternoon compared to other times a day. Habits: Tobacco: Quit smoking 6 years ago, still chews tobacco Caffeine: Alcohol: few on weekends Recreational substances: none PMFSH Past Medical History Medical History (Updated 06/22/24 @ 21:06 by Edilma Gonzalez MD) Anemia B12 deficiency Chapman esophagus Decreased exercise tolerance Elevated glucose Fatigue Hyperlipidemia Hypertension Internal hemorrhoid Low testosterone in male Obstructive sleep apnea Restless legs Screening for colon cancer Screening for prostate cancer Surgical History Surgical History H/O colonoscopy 2023 Hx of eye surgery 1983 Family History Family History Mother , CHF Congestive heart failure (CHF) Father Family history of lung cancer Other Asthma Family history of cardiovascular disease Family history of chronic obstructive pulmonary disease Family history of seizure disorder Social History Social History Smoking packs per day: 2 Smoking cigarettes per day: 40.0 Years smoked: 20 Smoking pack-years: 40.00 Smoking status: Former smoker Tobacco type: cigarettes Smokeless tobacco user: chewing tobacco Second hand tobacco smoke exposure: No Additional smoking assessment comments: CURRENTLY STILL CHEWS Alcohol intake: current Substance use: never Substance use type: does not use Do You Feel Safe in your Home?: Yes Lack of Transportation: No Lack of Food: Never True Current Housing: I Do Not Have Housing Concerned About Future Housing: No Difficulty Paying Gas/Electric Bills: No Difficulty Paying for Meds: No Currently Unemployed: No Education: Decline to Answer Difficulty w/ Childcare or Family Care: Decline to Answer Living arrangements: with family Gender identity (if verbalized by the patient): Male Spiritual care concerns: No Medications Home Medications Medication Instructions Recorded Confirmed Type hydrocortisone acetate 25 mg 25 mg RECTAL DAILY PRN hemorrhoids 12/31/23 06/15/24 Rx rectal suppository (Anusol-HC) #24 ea mecobalamin (vitamin B12) 1,000 1,000 mcg PO DAILY 02/05/24 06/15/24 History mcg chewable tablet pramipexole 0.125 mg tablet 0.125 mg PO QHS #30 tabs 02/05/24 06/15/24 Rx lisinopril 20 mg tablet 20 mg PO DAILY #30 tabs 03/26/24 06/15/24 Rx multivitamin 1 tablet PO DAILY 04/06/24 06/15/24 History omeprazole 40 mg capsule,delayed 40 mg PO DAILY #30 caps 06/15/24 06/15/24 Rx release prazosin 2 mg capsule 2 mg PO QPM #30 caps 06/17/24 Rx Sleep Procedure A full CPAP/BiPAP titration polysomnogram using the [employer] multi- channel system recorded the standard physiologic parameters including EEG, EOG, submentalis EMG, anterior tibialis EMG, EKG, body position, nasal and oral airflow using nasal pressure sensor and thermistor. Respiratory parameters of chest and abdominal movements were recorded with Respiratory Inductance Plethysmography belts. Oxygen saturation was recorded by pulse oximetry. Video monitoring was also performed. Sleep stages, periodic limb movements, and EEG arousals were scored in 30 second epochs according to the criteria of the AASM Scoring Manual. The Apnea-Hypopnea Index was calculated using CMS guidelines for definition of hypopnea while scoring respiratory events. The patient was started on CPAP using a medium ResMed Mirage Quattro fullface mask with heated humidity, initial pressure was 5 cm titrated to CPAP 20 cm, switched to BPAP 18/14, 19/15, and a final pressure of 21/17. At this pressure, the patient spent 21.5 minutes in bed, 1.5 minutes awake, 20 minutes in non-REM, no time in REM. The residual apnea hypopnea index was 0, and the lowest saturation was 93%. The patient had REM at CPAP pressures 14 cm and above, as well as BiPAP pressures 18/14 and 19/15. Sleep Architecture The total recording time was 479.1 minutes. The total sleep time was 428.5 minutes. Sleep latency was 10.6 minutes. REM latency was 84.5 minutes. Sleep efficiency was 89.4%. The patient had 38 awakenings for an awakening index of 5.3. Wake after Sleep Onset time was 40.0 minutes. The patient spent 34.5 minutes, 8.1% of total sleep time in Stage N1. The patient spent 268.0 minutes, 62.5% in Stage N2. The patient spent 16.5 minutes, 3.9% in Stage N3. The patient spent 109.5 minutes, 25.6% in Stage REM. Respiratory Analysis The patient had 72 hypopneas, 1 obstructive apneas, no mixed apneas, and 1 central apnea for an overall Apnea Hypopnea Index of 10.4 events per hour. The REM Apnea Hypopnea Index was 6.0. The NREM Apnea Hypopnea Index was 11.8. The patient had a Central Apnea Hypopnea Index of 0.1. There were no Respiratory Effort Related Arousals. The Respiratory Disturbance Index is 14.4 events per hour. There was no evidence of Paulino-Garcia respirations. The supinne AHI was 20.7, and the non-supine AHI was 3.7. Arousals There were 250 total arousals for an arousal index of 35.0. There were 116 spontaneous arousals for an index of 16.2. There were 44 arousals due to respiratory events for an index of 6.2. There were 86 arousals due to periodic limb movements for an index of 12.0. There were 6 arousals due to isolated limb movements for an index of 0.8. Periodic Limb Movements The patient had 15 isolated limb movements with an index of 2.1. The patient had 207 periodic limb movements with index of 29.0. Patient had a total of 222 limb movements with a total limb movement index of 31.1. Oximetry Data The patient had an average oxygen saturation of 95.1% in sleep with a minimum oxygen saturation of 84% and a maximum oxygen saturation of 98%. The patient had 78 oxygen desaturations that were 4% or greater resulting in an Oxygen Desaturation Index of 10.9. The patient spent 3.1 minutes, 0.6% of total sleep time with an oxygen saturation below 88%. Snoring Profile Snoring was moderate and frequent, eliminated during the titration. Cardiac Profile EKG showed normal sinus rhythm. The patient had an average pulse rate of 66.4 bpm with a minimum pulse rate of 48 bpm and a maximum pulse rate of 110 bpm. No arrhythmias noted. EEG Profile EEG was unremarkable, no evidence of seizures. Assessment and Plan Assessment and Plan (1) Obstructive sleep apnea: Code(s): G47.33 - Obstructive sleep apnea (adult) (pediatric) Status: Acute Assessment and Plan: This full night titration on May 25, 2024 shows an optimal pressure of BPAP 21/17 using a medium ResMed Quattro Mirage full face mask and and heated humidity. The residual apnea hypopnea index was 0, and supine non-REM sleep occurred. The patient should be prescribed this ResMed equipment as well as tubing, filters and reservoir. This should be used with all episodes of sleep. Compliance should be reviewed within 31-90 days of starting therapy for usage greater than 4 hours per night greater than 70% of the nights. The patient should be asked about symptoms such as excessive daytime sleepiness, quality of sleep, decreased nocturia, increased mental functioning such as memory, mood, and concentration. BMI is 34. Weight management is advised. Clinical data suggests that weight loss of 10% can reduce the severity of respiratory events and snoring and improve AHI by as much as 25%. (2) REM sleep behavior disorder: Code(s): G47.52 - REM sleep behavior disorder Status: Acute Assessment and Plan: This patient has REM sleep without atonia noted in most REM episodes throughout the night. The video shows movement in the legs during REM with consistent polysomnographic evidence. he has a history of acting out his dreams with frequent movements of arms and kicking. These episodes decreased in frequency on higher levels of PAP. Untreated sleep apnea can worsen REM sleep without atonia. Treating him with optimal pressure is expected to improve these episodes. Close clinical follow up is recommended. Melatonin can be used to reduce these episodes starting at 5 mg and titrating up to 18 mg taken 1-2 hours before normal bedtime. Data The data obtained during this sleep study is adequate for interpretation. Certification This sleep study has been reviewed by a board certified sleep medicine physician.
[2024-06-22 18:54] VITALS: BMI 34.7
== END 2024-05-26 07:07 | disposition home or self-care (01) ==
LOC: ANHCSM 12:00
PROVIDERS: PCP Nurse Practitioner Family; Visit Provider Nurse Practitioner Family
DX: G47.52 REM sleep behavior disorder (principal); G47.33 Obstructive sleep apnea (adult) (pediatric)
CPT/HCPCS: 95811